=== PATIENT | female | born 1970 | race Caucasian/White ===

== ENCOUNTER 2023-03-26 09:27 | Emergency (ER) | payer OTHER, SELFPAY ==
--- NOTE | ~2023-03-26 | XR_ITS ---
EXAMINATION: XR CHEST CLINICAL INFORMATION: Dizziness. COMPARISON: None available. TECHNIQUE: Frontal view of the chest was obtained. FINDINGS: No significant abnormality is noted involving the heart, lungs, mediastinum, bony thorax or soft tissues. XR/XR chest 1V IMPRESSION: No acute cardiopulmonary process.
--- NOTE | ~2023-03-26 | CT_ITS ---
EXAMINATION: CT HEAD WITHOUT CONTRAST CLINICAL INFORMATION: Dizziness, right upper extremity numbness, slurred speech. COMPARISON: None available. TECHNIQUE: Contiguous axial imaging was performed from the skull base to vertex without intravenous administration of contrast. Coronal and sagittal reformatted images were obtained. This CT examination was performed using dose optimization techniques as appropriate, variously including the following: *Automated exposure control *Adjustment of mA and/or kV according to patient size (this includes techniques or standardized protocols for targeted exams where dose is matched to indication/reason for exam; i.e. extremities or head) *Use of iterative reconstruction technique DLP: 613 mGy-cm FINDINGS: The cortical sulci are normal. The lateral ventricles are symmetrical. The third and fourth ventricles are in their normal midline position. The basilar and prepontine cisterns are unremarkable. There is no acute intra or extracerebral abnormality. There is no mass effect or midline shift. Sections through the bony calvarium are unremarkable. The paranasal sinuses are clear. The bony orbits and orbital contents are unremarkable. CT/CT head/brain wo IV con IMPRESSION: No acute intracranial pathology.
--- NOTE | ~2023-03-26 | MR_ITS ---
MRI OF THE BRAIN WITHOUT IV CONTRAST INDICATION: Right upper extremity numbness. COMPARISON: Head CT 03/26/2023. TECHNIQUE: Multiplanar multisequence MR imaging of the brain was obtained without IV contrast. FINDINGS: There is no hydrocephalus, extra-axial surface collection, or herniation. 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 The major flow voids at the skull base are preserved. There is no acute infarct on diffusion-weighted imaging. There is no intracranial hemorrhage on the gradient recalled echo acquisition. The midline structures are normal. The cerebellar tonsils are normally positioned. The cerebellum and brainstem are normal. The craniocervical junction is normal. Osseous marrow signal intensity is homogenous. The visualized soft tissues are unremarkable. MR/MR head/brain wo con IMPRESSION: - No acute intracranial findings. 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
[2023-03-26 09:39] VITALS: BP 171/94; PULSE 73; RESP 18; TEMP 36.8; O2SAT 95; BMI 36.2
--- NOTE | 2023-03-26 09:47 | PC.NURSE ---
Mally, radiologic technology program director aware of pt.'s symptoms
[2023-03-26 10:26] VITALS: BP 156/80; PULSE 78; RESP 20; O2SAT 93
[2023-03-26 10:38] VITALS: BP 132/82; PULSE 71; RESP 18; O2SAT 96
--- NOTE | 2023-03-26 10:41 | PC.NURSE ---
Addendum entered by Alison Alanis 03/26/23 11:41: iv established. Addendum entered by Alison Alanis 03/26/23 10:47: pt denies vision changes. Original Note: pt axox4, vss, respirations even and unlabored, sats 96% RA, nsr on monitor 71 bpm, skin wpd, neuros intact. pt reports feeling off x 3 wks; numbness/tingling/aching in R. arm; dizziness; intermittent POSADA. pt reports hx migraines and previous stroke 18 years ago. pt able to speak full clear sentences; no slurring noted; responding appropriately to commands. md to bedside; awaiting further orders. call calix within reach.
--- OUTSIDE RECORDS SUMMARY | 2023-03-26 11:02 | XMS_ITS | Continuity of Care Document ---
Author Name Unknown Organization [facility] Adult Address [address] [place] [address]- Care Team Providers Care Corrosion Control Engineer Name Role Phone Domitila DOMINGUEZ, Cassandra Primary Care Physician Encounter [facility] Date(s): 01/30/23 - 03/01/23 [facility] Adult [address] [place] [address]- Allergies, Adverse Reactions, Alerts Substance Reaction Severity Status propranolol CHEST TIGHTNESS Active amLODIPine EDEMA Active Immunizations Given and Recorded Vaccine Date Status Refusal Reason influenza virus vaccine, inactivated 08/30/21 Douglas rded influenza virus vaccine, inactivated 1 06/24/20 Gi suha influenza virus vaccine, inactivated 2 08/31/19 Gi suha influenza virus vaccine, inactivated 3 09/11/18 Gi suha influenza virus vaccine, inactivated 05/19/17 Douglas rded influenza virus vaccine, inactivated 05/01/17 Douglas rded influenza virus vaccine, inactivated 09/19/16 Give n influenza virus vaccine, inactivated 06/18/15 Douglas rded influenza virus vaccine, inactivated 05/07/14 Gi suha influenza virus vaccine, inactivated 06/24/13 Give n influenza virus vaccine, inactivated 07/01/08 Give n SARS-CoV-2 (COVID-19) mRNA BNT-162b2 vac 08/30/21 Recorded SARS-CoV-2 (COVID-19) mRNA BNT-162b2 vac 12/30/20 Given SARS-CoV-2 (COVID-19) mRNA BNT-162b2 vac 12/09/20 Given tetanus/diphtheria/pertussis, acel(Tdap) 5 06/24/20 Given tetanus/diphtheria/pertussis, acel(Tdap) 06/24/13 Given tetanus-diphtheria toxoids (Td) 11/27/07 Given 1Result Comment: [facility] 43494-193-67 2Result Comment: [facility] [id number] 3Result Comment: [09/11/2018] 01562-607-10 4Admin Note: [facility] 5Result Comment: [facility] 85657-697-36 TDAP GIVEN 1 INCH BELOW FLU VACCINE Medications albuterol CFC free 90 mcg/inh inhalation aerosol 2, puffs, Inhalation, 4 times a day, PRN, # 18 Gm, Refills 2, Tot. Refills 2, Maintenance, 02/14/2310:32:00 EDT, Aerosol, Route to Pharmacy Electronically, [id number], [facility], 153, cm, 01/22/23 15:39:00 EDT... Start Date: 02/14/23 Status: Ordered Excedrin 2 tablet, By Mouth, Every 6 hours, 0 Refills, Maintenance, 10/24/15 9:46:21 Start Date: 10/24/15 Status: Ordered Flonase Daily, 0 Refills, Maintenance, 10/29/22 11:16:00 EDT, Partial fill upon patient request if the prescription is for a schedule II opioid drug. Start Date: 10/29/22 Status: Ordered Flovent HFA 44 mcg/inh inhalation aerosol 2 puffs, Inhalation, 2 times a day, Use with spacer. Rinse and spit after use, # 12 Gm, 2 Refills, Maintenance, 02/14/23 10:33:00 EDT, Aerosol, [facility], Partial fill upon patientrequest if the prescription is for a schedule II opioid... Start Date: 02/14/23 Status: Ordered losartan 50 mg oral tablet 50 mg, 1, tablet, By Mouth, Daily, # 90 tablet, Refills 0, Tot. Refills 0, Maintenance, 02/01/23 8:20:00 EDT, Route to Pharmacy Electronically, [facility], Partial fill upon patientrequest if the prescription is for a schedule II opioid... Start Date: 02/01/23 Status: Ordered Relpax 40 mg oral tablet 1 tablet = 40 mg, By Mouth, Daily, PRN for migraine headache, may repeat dose once in 2 hours, max 2tabs/24hrs, # 18 tablet, 2 Refills, Maintenance, 07/11/22 15:08:00 EST, Tablet, [facility], 153, cm, 07/11/22 14:35:00 EST, Height Start Date: 07/11/22 Status: Ordered Sudafed 12-Hour = 120 mg, By Mouth, Every 12 hours, 0 Refills, Maintenance, 07/04/21 17:29:00 EST, Partial fill upon patient request if the prescription is for a schedule II opioid drug. Start Date: 07/04/21 Status: Ordered Xyzal By Mouth, Daily before dinner, 0 Refills, Maintenance, 10/29/22 11:16:00 EDT, Partial fill upon patient request if the prescription is for a schedule II opioid drug. Start Date: 10/29/22 Status: Ordered Problem List Condition Confirmation Course Effective Dates Status Health Status Informant Elevated BP without diagnosis of hypertension Confirmed Active Hypercholesterolemia Confirmed Active Migraine Confirmed 1984 Active Multiple thyroid nodules Confirmed 2010 Active Obesity Confirmed Active Obstructive sleep apnea syndrome 1 Confirmed 2010 Active Seasonal depression Confirmed Active Severe obesity (BMI 35.0-39.9) with comorbidity Confirmed Active 1mild Social History Social History Type Response Smoking Status Never smoker entered on: 10/24/15 Sex Patient Care team information Care Team Personnel Name: Cassandra Ramesh MD Position: [facility] Physician - Primary Care Member Role: PCP Address: Address: [address] [place] [address]- Name: Clark DOMINGUEZ, Jose Grayson Position: [facility] Cardiology MD Member Role: Lifetime Consulting Physician Address: Address: [address] [place] [address] [place] [address]- Care Team Related Persons Name: PATT MIRAMONTES Address: home [address] [place] [address] Name: LEXY COBB Address: [place] [address] Name: EL MORAN Address: home [address] [place] [address]
--- OUTSIDE RECORDS SUMMARY | 2023-03-26 11:02 | XMS_ITS | Continuity of Care Document ---
Author Name Unknown Organization [facility] Adult Address [address] [place] [address]- Care Team Providers Care Liner Reroll Tender Name Role Phone Domitila DOMINGUEZ, Cassandra Primary Care Physician Encounter [facility] Date(s): 02/06/23 - 03/08/23 [facility] Adult [address] [place] [address]- Allergies, Adverse Reactions, Alerts Substance Reaction Severity [...] 06/18/15 Douglas rded influenza virus vaccine, inactivated 4 05/07/14 Gi suha influenza virus vaccine, inactivated 06/24/13 Give n influenza virus vaccine, inactivated 07/01/08 Give n SARS-CoV-2 (COVID-19) mRNA BNT-162b2 vac 08/30/21 Recorded SARS-CoV-2 (COVID-19) mRNA BNT-162b2 vac 12/30/20 Given SARS-CoV-2 (COVID-19) mRNA BNT-162b2 vac 12/09/20 Given tetanus/diphtheria/pertussis, acel(Tdap) 5 06/24/20 Given tetanus/diphtheria/pertussis, acel(Tdap) 06/24/13 Given tetanus-diphtheria toxoids (Td) 11/27/07 Given 1Result Comment: [facility] 83474-916-81 2Result Comment: [facility] [id number] 3Result Comment: [09/11/2018] 48725-793-67 4Admin Note: [facility] 5Result Comment: [facility] 36813-684-69 TDAP GIVEN 1 INCH BELOW FLU VACCINE Medications albuterol CFC free 90 mcg/inh inhalation aerosol 2, puffs, Inhalation, 4 times a day, PRN, # 18 Gm, Refills 2, Tot. Refills 2, Maintenance, 02/14/2310:32:00 EDT, Aerosol, Route to Pharmacy Electronically, [id number], [facility], 153, cm, 01/22/23 [...] Team Personnel Name: Cassandra Ramesh MD Position: [facility] Physician - Primary Care Member Role: PCP Address: Address: [address] [place] [address]- Name: Clark DOMINGUEZ, Jose Grayson Position: [facility] Cardiology MD Member Role: Lifetime Consulting Physician Address: Address: [address] [place] [address] [place] [address]- Care Team Related Persons Name: PATT MIRAMONTES Address: [address] [place] [address] Name: LEXY COBB Address: [place] [address] Name: EL MORAN Address: home [address] [place] [address]
--- OUTSIDE RECORDS SUMMARY | 2023-03-26 11:02 | XMS_ITS | Continuity of Care Document ---
Author Name Unknown Organization [facility] Adult Address [address] [place] [address]- Care Team Providers Care Brand Recorder Name Role Phone Domitila DOMINGUEZ, Cassandra Primary Care Physician Encounter [facility] [place] Date(s): 07/04/21 - 07/11/21 [facility] Adult [address] [place] [address]- Encounter Diagnosis Migraine(Discharge Diagnosis) - 07/04/21 Attending Physician: Cassandra Ramesh MD Allergies, Adverse Reactions, Alerts Substance Reaction Severity Status propranolol CHEST TIGHTNESS Active Immunizations Given and Recorded Vaccine Date Status Refusal Reason SARS-CoV-2 (COVID-19) mRNA BNT-162b2 vac 12/30/20 Given SARS-CoV-2 (COVID-19) mRNA BNT-162b2 vac 12/09/20 Given tetanus/diphtheria/pertussis, acel(Tdap) 1 06/24/20 Given tetanus/diphtheria/pertussis, acel(Tdap) 06/24/13 Given influenza virus vaccine, inactivated 2 06/24/20 Gi suha influenza virus vaccine, inactivated 3 08/31/19 Gi suha influenza virus vaccine, inactivated 4 09/11/18 Gi suha influenza virus vaccine, inactivated 05/19/17 Douglas rded influenza virus vaccine, inactivated 09/19/16 Give n influenza virus vaccine, inactivated 5 05/07/14 Gi suha influenza virus vaccine, inactivated 06/24/13 Give n influenza virus vaccine, inactivated 07/01/08 Give n tetanus-diphtheria toxoids (Td) 11/27/07 Given 1Result Comment: [facility] 58023-728-48 TDAP GIVEN 1 INCH BELOW FLU VACCINE 2Result Comment: [facility] [id number] 3Result Comment: [facility] [id number] 4Result Comment: [09/11/2018] 54140-823-86 5Admin Note: [facility] Medicine Medications Claritin-D By Mouth, Every 12 hours, 0 Refills, Maintenance, 07/04/21 17:29:00 EST, Partial fill upon patient request if the prescription is for a schedule II opioid drug. Start Date: 07/04/21 Status: Ordered Excedrin 2 tablet, By Mouth, Every 6 hours, 0 Refills, Maintenance, 10/24/15 9:46:21 Start Date: 10/24/15 Status: Ordered Lo Loestrin Fe oral tablet 1 tablet, By Mouth, Daily, # 84 tablet, 0 Refills, Maintenance, 06/24/20 10:42:00 EST, Tablet Start Date: 06/24/20 Status: Ordered Relpax 40 mg oral tablet 1 tablet = 40 mg, By Mouth, Daily, PRN for migraine headache, may repeat dose once in 2 hours, max 2tabs/24hrs, # 18 tablet, 2 Refills, Maintenance, 11/11/20 13:54:00 EDT, Tablet, [facility], 153, cm, 09/26/20 13:02:00 EST, Height Start Date: 11/11/20 Status: Ordered Sudafed 12-Hour = 120 mg, By Mouth, Every 12 hours, 0 Refills, Maintenance, 07/04/21 17:29:00 EST, Partial fill upon patient request if the prescription is for a schedule II opioid drug. Start Date: 07/04/21 Status: Ordered Problem List Condition Effective Dates Status Health Status Inform ant Hypercholesterolemia(Confirmed) Active Migraine(Confirmed) 1984 Active Multiple thyroid nodules(Confirmed) 2010 Active Obesity(Confirmed) Active Obstructive sleep apnea syndrome(Confirmed) 2010 Active Seasonal depression(Confirmed) Active 1mild Diagnosis Diagnosis Type Effective Dates Health Status Clini elizabeth Service Informant Migraine Discharge Diagnosis 07/04/21 Vital Signs Most recent to oldest [Reference Range]: 1 Height 153 cm (07/04/21 4:30 PM) Social History Social History Type Response Smoking Status Never smoker entered on: 10/24/15 Sex
--- OUTSIDE RECORDS SUMMARY | 2023-03-26 11:02 | XMS_ITS | Continuity of Care Document ---
Author Name Unknown Organization [facility] Adult Address [address] [place] [address]- Care Team Providers Care Valet Name Role Phone Domitila DOMINGUEZ, [place] Primary Care Physician Encounter [facility] Date(s): 02/12/23 - 02/19/23 [facility] Adult [address] [place] [address]- Encounter Diagnosis Chronic cough(Discharge Diagnosis) - 02/14/23 Attending Physician: Not on Staff, Attending MD Allergies, Adverse Reactions, Alerts Substance Reaction [...] tetanus-diphtheria toxoids (Td) 11/27/07 Given 1Result Comment: [facility] 83175-786-60 2Result Comment: [facility] [id number] 3Result Comment: [09/11/2018] [id number] 4Admin Note: [facility] 5Result Comment: [facility] 39374-778-43 TDAP GIVEN 1 INCH BELOW FLU VACCINE Medications albuterol CFC free 90 mcg/inh inhalation aerosol 2, puffs, Inhalation, 4 times a day, PRN, # 18 Gm, Refills 2, Tot. Refills 2, Maintenance, 02/14/2310:32:00 EDT, Aerosol, Route to Pharmacy Electronically, [id number], [facility], 153, cm, 01/22/23 [...] (BMI 35.0-39.9) with comorbidity Confirmed Active 1mild Diagnosis Diagnosis Type Effective Dates Health Status Cl inical Service Informant Chronic cough Discharge Diagnosis 02/14/23 Non-Specified Vital Signs Most recent to oldest [Reference Range]: 1 2 Pulse Rate [55-90 bpm] 83 bpm (02/12/23 2:51 PM) Blood Pressure [90-138/55-84 mm Hg] 143/ 83mm Hg *H* (02/12/23 3:03 PM) 149/84mm Hg *H* (02/12/23 2:51 PM) Blood pressure sites Arm, left (02/12/23 3:03 PM) Arm, left (02/12/23 2:51 PM) Social History Social History Type Response Smoking Status Never smoker entered on: 10/24/15 Sex Patient Care team information Care Team Personnel Name: Cassandra Ramesh MD Position: S Physician - Primary Care Member Role: PCP Address: Address: [address] [facility] [address] [place] [address]- [place] Name: Clark DOMINGUEZ, Jose Grayson Position: [facility] Cardiology MD Member Role: Lifetime Consulting Physician Address: Address: [address] [place] [address] [place] [address]- Care Team Related Persons Name: PATT MIRAMONTES Address: home [address] [place] [address] Name: LEXY COBB Address: [place] [address] Name: EL MORAN Address: home [address] [place] [address]
--- OUTSIDE RECORDS SUMMARY | 2023-03-26 11:02 | XMS_ITS | Continuity of Care Document ---
Author Name Unknown Organization [facility] Adult Address [address] [place] [address]- Care Team Providers Care Boss Miner Name Role Phone Domitila DOMINGUEZ, Cassandra Primary Care Physician Encounter [facility] Date(s): 04/06/22 - 05/06/22 [facility] Adult [address] [place] [address]- Attending Physician: Admtr, Ar8 Allergies, Adverse Reactions, Alerts Substance Reaction Severity [...] tetanus-diphtheria toxoids (Td) 11/27/07 Given 1Result Comment: [facility] 27046-356-78 TDAP GIVEN 1 INCH BELOW FLU VACCINE 2Result Comment: [facility] 56720-963-46 3Result Comment: [facility] [id number] 4Result Comment: [09/11/2018] 13260-349-91 5Admin Note: [facility] Medicine Medications Claritin-D By Mouth, Every [...] 2tabs/24hrs, # 18 tablet, 2 Refills, Maintenance, 12/08/21 10:00:00 EDT, Tablet, [facility], 153, cm, 07/04/21 16:30:00 EST, Height Start Date: 12/08/21 Status: Ordered Sudafed 12-Hour = 120 mg, [...] syndrome(Confirmed) 2010 Active Seasonal depression(Confirmed) Active 1mild Social History Social History Type Response Smoking Status Never smoker entered on: 10/24/15 Sex Care Team Personnel Name: Domitila DOMINGUEZ, Cassandra Address: [address] [address] [[email or web address]]
--- OUTSIDE RECORDS SUMMARY | 2023-03-26 11:02 | XMS_ITS | Continuity of Care Document ---
Author Name Unknown Organization [facility] Adult Address [address] [place] [address]- Care Team Providers Care Personnel Analyst Name Role Phone Domitila DOMINGUEZ, Cassandra Primary Care Physician Encounter [facility] Date(s): 07/11/22 - 07/18/22 [facility] Adult [address] [place] [address]- Encounter Diagnosis Sinus infection(Discharge Diagnosis) - 07/11/22 Migraine(Discharge Diagnosis) - 07/11/22 Attending Physician: Cassandra Ramesh MD Allergies, Adverse [...] toxoids (Td) 11/27/07 Given 1Result Comment: [facility] 31134-812-98 2Result Comment: [facility] [id number] 3Result Comment: [09/11/2018] 75783-824-92 4Admin Note: [facility] 5Result Comment: [facility] [id number] TDAP GIVEN 1 INCH BELOW FLU VACCINE Medications Excedrin 2 tablet, By Mouth, Every 6 hours, 0 Refills, Maintenance, 10/24/15 9:46:21 Start Date: 10/24/15 Status: Ordered Relpax 40 mg oral tablet [...] Date: 07/04/21 Status: Ordered Problem List Condition Confirmation Course Effective Dates Status Health Status Informant Hypercholesterolemia Confirmed Active Migraine Confirmed 1984 Active Multiple thyroid nodules Confirmed 2010 Active Obese class I Confirmed Active Obesity Confirmed Active Obstructive sleep apnea syndrome 1 Confirmed 2010 Active Seasonal depression Confirmed Active 1mild Diagnosis Diagnosis Type Effective Dates Health Status Cl inical Service Informant Sinus infection Discharge Diagnosis 07/11/22 Migraine Discharge Diagnosis 07/11/22 Vital Signs Most recent to oldest [Reference Range]: 1 Height 153 cm (07/11/22 2:35 PM) Weight 80.9 kg (07/11/22 2:35 PM) Oxygen Saturation [94-100 %] 97 % (07/11/22 2:35 PM) Pulse Rate [55-90 bpm] 102 bpm *H* (07/11/22 2:35 PM) Body Mass Index [18.5-24.99 kg/m2] 34.56 kg/m2 *>HHI* (07/11/22 2:35 PM) Blood Pressure [90-138/55-84 mm Hg] 138/ 81mm Hg (07/11/22 2:35 PM) Temperature [96.8-100.4 DegF] 98.3 DegF (07/11/22 2:35 PM) Mode of Delivery (Oxygen) Room air (07/11/22 2:35 PM) Blood pressure sites Arm, left (07/11/22 2:35 PM) Temperature Route Oral (07/11/22 2:35 PM) Weight Obtained Via Standing scale (07/11/22 2:35 PM) Social History Social History Type Response Smoking Status Never smoker entered on: 10/24/15 Sex Note * Stefanie Vazquez: PERFORM, SIGN, VERIFY Event Display: Patient Education/Instruction Authored Date: [id number] [facility] Clinical Summary Name LOUISA MIRAMONTES Age 51 Years 1970 PCP Domitila DOMINGUEZ, Cassandra PCP Visit Date 07/11/2022 14:33:00 Additional Instructions: Scheduled Appointments?? Future Appointments ?No Future Appointments Scheduled Follow-Up Instructions ?? Diagnosis Migraine, unspecified, not intractable, without status migrainosus; Chronic sinusitis, unspecified Medications: Please continue your medications until treatment is completed or stopped by your provider. Discuss any questions related to medications with your provider. New Medications [facility], [address] [place] [id number], [phone] Amoxicillin-Clavulanate (Augmentin 875 mg-125 mg oral tablet) 1 tab(s) Oral every 12 hours for 7 Days. Refills: 0. Next Dose: Medications to Continue with No Changes These medications were not printed or sent to your pharmacy Apap/Asa/Caffeine (Excedrin) 2 tab(s) Oral every 6 hours. Next Dose: Eletriptan (Relpax 40 mg oral tablet) 1 tab(s) Oral Daily as needed for migraine headache. may repeat dose once in 2 hours, max 2tabs/24hrs. Refills: 2. Next Dose: Pseudoephedrine (Sudafed 12-Hour) 120 Milligram Oral every 12 hours. Next Dose: No Longer Take the Following Medications Ethinyl Estradiol / Norethindrone (Lo Loestrin Fe oral tablet) 1 tab(s) Oral Daily. Loratadine-Pseudoephedrine (Claritin-D) Oral every 12 hours. Allergy Info:?? propranolol Medications Given This Visit Future Orders ?MM Digital Mammo Screening? Order Date:07/11/22?- Complete on or after?07/11/22 Vital Signs Height 153 cm Weight 80.9 kg BMI 34.56 kg/m2 Blood Pressure 138 mm Hg/81 mm Hg Temperature 98.3 DegF Pulse Rate 102 bpm Respiratory Rate 02 Sat Mode of Delivery 97 %/Room air You can now view a summary of your hospital visit from the comfort of your home through a free online portal called [employer]. [employer] is a website that allows you to securely view your medical information including discharge summary, medications and follow-up visits. ??You can alsosend a secure electronic message to your doctor???s office to request appointments, renew medications or just ask a question. You can enroll at [email or web address] or register during your next office visit. Disclaimer:?? The information provided is of a general nature and is intended to be used in conjunction with the recommendations and advice of your health care practitioner. ??Every effort has been made to ensure that the information provided is accurate and complete at the time it is provided to you however, as your needs change, or, as new ??information becomes available, different or additional instructions may be required. If you have questions, please consult with your primary care provider or pharmacist, as appropriate. ??This information is not intended to serve as substitution for assessment and evaluation by a qualified health care provider. If you do not have a primary care provider, you may find a [facility] provider by calling [facility] Link at [phone]. For information about the plan of care including goals and instructions for your diagnosis, please see the patient education orders section of this document. Patient Education Materials?? The content of this educational material or handout may have been modified, supplemented, or adapted from its original content and format to support your individualized medical care. Patient Care team information Care Team Personnel Name: Cassandra Ramesh MD Position: [facility] Primary Care Physician Member Role: PCP Address: Address: [address] [place] [address]- Name: Jose Rodas MD Position: [facility] Cardiology MD Member Role: Lifetime Consulting Physician Address: Address: [address] [place] [address] [place] [address]- Care Team Related Persons Name: PATT MIRAMONTES Address: home [address] [place] [address] Name: LEXY COBB Address: [place] [address] Name: EL MORAN Address: home [address] [place] [address]
--- OUTSIDE RECORDS SUMMARY | 2023-03-26 11:02 | XMS_ITS | Continuity of Care Document ---
Author Name Unknown Organization [facility] Adult Address [address] [place] [address]- Care Team Providers Care Reforestation Worker Name Role Phone Domitila DOMINGUEZ, [place] Primary Care Physician Encounter [facility] Date(s): 12/18/22 - 12/25/22 [facility] Adult [address] [place] [address]- Attending Physician: Not on Staff, Attending MD [...] Given 1Result Comment: [facility] 61304-420-24 2Result Comment: [facility] [id number] 3Result Comment: [09/11/2018] 07241-355-67 4Admin Note: [facility] 5Result Comment: [facility] 67826-170-19 TDAP GIVEN 1 INCH BELOW FLU VACCINE Medications Excedrin 2 tablet, By Mouth, Every 6 hours, 0 Refills, Maintenance, 10/24/15 9:46:21 Start Date: 10/24/15 Status: Ordered Flonase Daily, 0 Refills, Maintenance, 10/29/22 11:16:00 EDT, Partial fill upon patient request if the prescription is for a schedule II opioid drug. Start Date: 10/29/22 Status: Ordered lisinopril 20 mg oral tablet 20 mg, 1, tablet, By Mouth, Daily, # 30 tablet, Refills 1, Tot. Refills 1, Maintenance, 11/27/22 15:33:00 EDT, Route to Pharmacy Electronically, [facility], Partial fill upon patient request if the prescription is for a schedule II opioi... Start Date: 11/27/22 Status: Ordered predniSONE 10 mg oral tablet See Instructions, Take 3 tablets by mouth together in the a.m. for 3 days, then take 2 tablets by mouth daily in the a.m. for 3 days, then take 1 tablet by mouth daily in the a.m. for 3 days., # 18 tablet, 0 Refills, Maintenance, 10/29/22 13:02:00 EDT... Start Date: 10/29/22 Stop Date: 11/07/22 Status: Ordered Relpax 40 mg oral tablet [...] (BMI 35.0-39.9) with comorbidity Confirmed Active 1mild Vital Signs Most recent to oldest [Reference Range]: 1 2 Pulse Rate [55-90 bpm] 97 bpm *H* (12/18/22 2:31 PM) Blood Pressure [90-138/55-84 mm Hg] 135/ 86mm Hg (12/18/22 2:36 PM) 150/88mm Hg *H* (12/18/22 2:31 PM) Blood pressure sites Arm, right (12/18/22 2:36 PM) Arm, right (12/18/22 2:31 PM) Social History Social History Type Response Smoking Status Never smoker entered on: 10/24/15 Sex Patient Care team information Care Team Personnel Name: Domitila DOMINGUEZ, Cassandra Position: [facility] Primary Care Physician Member Role: PCP Address: Address: [address] [place] [address] [address] [place] [address]- Name: Jose Rodas MD Position: [facility] Cardiology MD Member Role: Lifetime Consulting Physician Address: Address: [address] [place] [address]- Care Team Related Persons Name: PATT MIRAMONTES Address: home [address] [place] [address] Name: LEXY COBB Address: [place] [address] Name: EL MORAN Address: [address] [address]
--- OUTSIDE RECORDS SUMMARY | 2023-03-26 11:02 | XMS_ITS | Continuity of Care Document ---
Author Name Unknown Organization [facility] Adult Address [address] [place] [address]- Care Team Providers Care Clinical Specialist Medical Device Name Role Phone Domitila DOMINGUEZ, Cassandra Primary Care Physician Encounter [facility] Date(s): 11/26/22 - 12/26/22 [facility] Adult [address] [place] [address]- Allergies, Adverse Reactions, Alerts Substance Reaction Severity [...] tetanus/diphtheria/pertussis, acel(Tdap) 5 06/24/20 Given tetanus/diphtheria/pertussis, acel(Tdap) 11/6/13 Given tetanus-diphtheria toxoids (Td) 11/27/07 Given 1Result Comment: [facility] 40150-586-10 2Result Comment: [facility] [id number] 3Result Comment: [09/11/2018] 84157-213-11 4Admin Note: [facility] 5Result Comment: [facility] 12847-308-56 TDAP GIVEN 1 INCH BELOW FLU VACCINE [...] EDT, Route to Pharmacy Electronically, [facility], Partial fill upon patient request [...] Maintenance, 07/11/22 15:08:00 EST, Tablet, [facility], 153, cm, 07/11/22 14:35:00 EST, [...] Team Personnel Name: Cassandra Ramesh MD Position: [facility] Primary Care Physician Member Role: PCP Address: Address: [address] [place] [address]- Name: Clark DOMINGUEZ, Jose Grayson Position: [facility] Cardiology MD Member Role: Lifetime Consulting Physician Address: Address: [address] [place] [address] [place] [address]- Care Team Related Persons Name: PATT MIRAMONTES Address: home [address] [place] [address] Name: LEXY COBB Address: [place] [address] Name: EL MORAN Address: [address] [address]
--- OUTSIDE RECORDS SUMMARY | 2023-03-26 11:02 | XMS_ITS | Continuity of Care Document ---
Author Name Unknown Organization [facility] Adult Address [address] [place] [address]- Care Team Providers Care Bean Viner Name Role Phone Domitila DOMINGUEZ, [place] Primary Care Physician [facility]counter [facility] Date(s): 06/29/20 - 07/29/20 [facility] Adult [address] [place] [address]- Allergies, Adverse Reactions, Alerts Substance Reaction Severity Status propranolol CHEST TIGHTNESS Active Immunizations Given and Recorded Vaccine Date Status Refusal Reason tetanus/diphtheria/pertussis, acel(Tdap) 1 06/24/20 Given tetanus/diphtheria/pertussis, acel(Tdap) [...] tetanus-diphtheria toxoids (Td) 11/27/07 Given 1Result Comment: [facility] 26338-543-41 TDAP GIVEN 1 INCH BELOW FLU VACCINE 2Result Comment: [facility] 96654-434-50 3Result Comment: [facility] [id number] 4Result Comment: [09/11/2018] 17918-008-98 5Admin Note: [facility] Medicine Medications Estefany By Mouth, 0 Refills, Maintenance, 06/24/20 10:39:00 EST Start Date: 06/24/20 Status: Ordered Excedrin 2 tablet, By Mouth, Every 6 hours, 0 Refills, Maintenance, 10/24/15 9:46:21 Start Date: 10/24/15 Status: Ordered Lo Loestrin Fe oral tablet 1 tablet, By Mouth, Daily, # 84 tablet, 0 Refills, Maintenance, 06/24/20 10:42:00 EST, Tablet Start Date: 06/24/20 Status: Ordered NuLYTELY with Flavor Packs oral powder for reconstitution 240 mL, By Mouth, Every 10 minutes, # 1 each, 0 Refills, Maintenance, 06/29/20 9:40:00 EST, REC Powder, [facility], test date 09/26/20, 240 mL By Mouth Every 10 minutes, 151.4, cm, 06/24/20 10:16:00 EST, Height Start Date: 06/29/20 Status: Ordered Relpax 40 mg oral tablet 1 tablet = 40 mg, By Mouth, Daily, PRN for migraine headache, may repeat dose once in 2 hours, max 2tabs/24hrs, # 18 tablet, 2 Refills, Maintenance, 08/31/19 14:05:00 EST, Tablet, [facility], 151.5, cm, 08/31/19 13:20:00 EST, He... Start Date: 08/31/19 Status: Ordered Problem List Condition Effective Dates Status Health Status Inform ant Hypercholesterolemia(Confirmed) Active Migraine(Confirmed) 1984 Active Multiple thyroid nodules(Confirmed) 2010 Active Obesity(Confirmed) Active Obstructive sleep apnea syndrome(Confirmed) 2010 Active Seasonal depression(Confirmed) Active 1mild Social History Social History Type Response Smoking Status Never smoker entered on: 10/24/15 Sex
--- OUTSIDE RECORDS SUMMARY | 2023-03-26 11:02 | XMS_ITS | Continuity of Care Document ---
Author Name Unknown Organization [facility] Adult Address [address] [place] [address]- Care Team Providers Care Maintenance Of Way Supervisor Name Role Phone Domitila DOMINGUEZ, Cassandra Primary Care Physician [facility]counter [facility] Date(s): 12/07/21 - 01/06/22 [facility] Adult [address] [place] [address]- Allergies, Adverse Reactions, Alerts Substance Reaction Severity [...] tetanus-diphtheria toxoids (Td) 11/27/07 Given 1Result Comment: [facility] 75940-171-41 TDAP GIVEN 1 INCH BELOW FLU VACCINE 2Result Comment: [facility] 90007-157-59 3Result Comment: [facility] [id number] 4Result Comment: [09/11/2018] 64755-255-26 5Admin Note: [facility] Medications Claritin-D By Mouth, Every 12 hours, [...]
--- OUTSIDE RECORDS SUMMARY | 2023-03-26 11:02 | XMS_ITS | Continuity of Care Document ---
Author Name Unknown Organization [facility] Address [address] [place] [address]- Care Team Providers Care Investigation Specialist Name Role Phone Domitila DOMINGUEZ, [place] Primary Care Physician [facility]counter [facility] Date(s): 09/20/20 - 10/20/20 [facility] [address] [place] [address] Allergies, Adverse Reactions, Alerts Substance Reaction Severity [...] tetanus-diphtheria toxoids (Td) 11/27/07 Given 1Result Comment: [facility] 86983-531-14 TDAP GIVEN 1 INCH BELOW FLU VACCINE 2Result Comment: [facility] 16715-299-60 3Result Comment: [facility] [id number] 4Result Comment: [09/11/2018] [id number] 5Admin Note: [facility] Medications Estefany By Mouth, 0 Refills, [...] 2 Refills, Maintenance, 08/31/19 14:05:00 EST, Tablet, [facility], 151.5, cm, 08/31/19 13:20:00 EST, [...]
--- OUTSIDE RECORDS SUMMARY | 2023-03-26 11:02 | XMS_ITS | Continuity of Care Document ---
Author Name Unknown Organization [facility] Adult Address [address] [place] [address]- Care Team Providers Care Sfdc Consultant Name Role Phone Domitila DOMINGUEZ, Cassandra Primary Care Physician Encounter [facility] Date(s): 02/12/23 - 03/14/23 [facility] Adult [address] [place] [address]- Attending Physician: Admtr, Ar8 Allergies, Adverse Reactions, [...] tetanus-diphtheria toxoids (Td) 11/27/07 Given 1Result Comment: [facility] 31273-526-87 2Result Comment: [facility] [id number] 3Result Comment: [09/11/2018] 42883-879-01 4Admin Note: [facility] 5Result Comment: [facility] 53331-421-69 TDAP GIVEN 1 INCH BELOW FLU VACCINE Medications albuterol CFC free 90 mcg/inh inhalation aerosol 2, puffs, Inhalation, 4 times a day, PRN, # 18 Gm, Refills 2, Tot. Refills 2, Maintenance, 02/14/2310:32:00 EDT, Aerosol, Route to Pharmacy Electronically, [id number], [facility], 153, cm, 01/22/23 15:39:00 EDT... Start Date: 02/14/23 Status: Ordered Breo Ellipta 200 mcg-25 mcg/inh inhalation powder 1 puffs, Inhalation, Daily, # 1 each, 6 Refills, Maintenance, 03/13/23 9:20:00 EDT, Powder, [facility], Partial fill upon patient request if the prescription is for a schedule II opioid drug., 1 puffs Inhalation Daily,x30 days, 153, cm,... Start Date: 03/13/23 Stop Date: 10/09/23 Status: Ordered Excedrin 2 tablet, By Mouth, [...] II opioid... Start Date: 02/01/23 Status: Ordered omeprazole 40 mg oral enteric coated capsule 1 capsule = 40 mg, By Mouth, 2 times a day, take first, then when complete, start once daily treatment, # 28 capsule, 0 Refills, Maintenance, 03/13/23 9:21:00 EDT, EC Capsule, [facility], Partial fill upon patient request if the prescrip... Start Date: 03/13/23 Stop Date: 03/27/23 Status: Ordered omeprazole 40 mg oral enteric coated capsule 1 capsule = 40 mg, By Mouth, Daily, start after twice a day prescription is completed, # 30 capsule, 6 Refills, Maintenance, 03/13/23 9:21:00 EDT, EC Capsule, [facility], Partial fill upon patient request if the prescription is for a laurel... Start Date: 03/13/23 Stop Date: 10/09/23 Status: Ordered Relpax 40 mg oral tablet [...] Status Never smoker entered on: 10/24/15 Sex Cardiology * Casie Montemayor: PERFORM Event Display: Cardiovascular Results Scanned Authored Date: Laboratory * Event Display: Non BH Lab Results Authored Date: * Event Display: Non BH Lab Results Authored Date: * Event Display: Non BH Lab Results Authored Date: Cardiology Consult note * Event Display: Consult Note Cardiology Authored Date: * Event Display: Consult Note Cardiology Authored Date: * Event Display: Consult Note Cardiology Authored Date: Patient Care team information Care Team Personnel Name: Domitila DOMINGUEZ, Cassandra Position: [facility] Physician - Primary Care Member Role: PCP Address: Address: [address] [place] [address]- Name: Clark DOMINGUEZ, Jose Grayson Position: [facility] Cardiology MD Member Role: Lifetime Consulting Physician Address: Address: [address] [place] [address] [place] [address]- Care Team Related Persons Name: PATT MIRAMONTES Address: home [address] [place] [address] Name: LEXY COBB Address: [place] [address] Name: EL MORAN Address: home [address] [place] [address]
--- OUTSIDE RECORDS SUMMARY | 2023-03-26 11:02 | XMS_ITS | Continuity of Care Document ---
Author Name Unknown Organization [facility] Adult Address [address] [place] [address]- Care Team Providers Care Policy Checker Name Role Phone Domitila DOMINGUEZ, Cassandra Primary Care Physician [facility] Date(s): 10/29/22 - 11/28/22 [facility] Adult [address] [place] [address]- Allergies, Adverse Reactions, Alerts Substance Reaction Severity [...] toxoids (Td) 11/27/07 Given 1Result Comment: [facility] 44097-421-81 2Result Comment: [facility] [id number] 3Result Comment: [09/11/2018] [id number] 4Admin Note: [facility] 5Result Comment: [facility] 35475-786-39 TDAP GIVEN 1 INCH BELOW FLU VACCINE [...] EDT, Route to Pharmacy Electronically, [facility], Partial fill upon patient request [...] opioid drug. Start Date: 07/04/21 Status: Ordered Tessalon Perles 100 mg oral capsule 1 capsule = 100 mg, By Mouth, 3 times a day, PRN as needed for cough, for 7 days, # 21 capsule, 0 Refills, Acute 12/04/22 16:51:00 EDT, 11/27/22 16:51:00 EDT, Capsule, [facility], Partial fill upon patient request if the prescription is... Start Date: 11/27/22 Stop Date: 12/04/22 Status: Ordered Xyzal By Mouth, Daily before [...] Team Personnel Name: Cassandra Ramesh MD Position: [facility] Primary Care Physician Member Role: PCP Address: Address: [address] [place] [address]- Name: Jose Rodas MD Position: [facility] Cardiology MD Member Role: Lifetime Consulting Physician Address: Address: [address] [place] [address] [place] [address]- Care Team Related Persons Name: PATT MIRAMONTES Address: home [address] [place] [address] Name: LEXY COBB Address: [place] [address] Name: EL MORAN Address: home [address] [place] [address]
--- OUTSIDE RECORDS SUMMARY | 2023-03-26 11:02 | XMS_ITS | Continuity of Care Document ---
Author Name Unknown Organization [facility] Address [address] [place] [address]- Care Team Providers Care Senior Receptionist Name Role Phone Domitila DOMINGUEZ, [place] Primary Care Physician [facility]counter [facility] Date(s): 09/27/20 - 10/27/20 [facility] [address] [place] [id number] Allergies, Adverse Reactions, Alerts Substance Reaction [...] 1Result Comment: [facility] 60906-376-71 TDAP GIVEN 1 INCH BELOW FLU VACCINE 2Result Comment: [facility] 86483-067-03 3Result Comment: [facility] [id number] 4Result Comment: [09/11/2018] 62073-634-08 5Admin Note: [facility] Medications Estefany By Mouth, 0 Refills, [...] 2 Refills, Maintenance, 08/31/19 14:05:00 EST, Tablet, [facility], 151.5, cm, 08/31/19 13:20:00 EST, He... [...]
--- OUTSIDE RECORDS SUMMARY | 2023-03-26 11:02 | XMS_ITS | Continuity of Care Document ---
Author Name Unknown Organization [facility] Adult Address [address] [place] [address]- Care Team Providers Care C D Area Supervisor Name Role Phone Domitila DOMINGUEZ, Cassandra Primary Care Physician Encounter [facility] Date(s): 01/16/23 - 02/15/23 [facility] Adult [address] [place] [address]- Allergies, Adverse Reactions, Alerts Substance Reaction Severity [...] tetanus-diphtheria toxoids (Td) 11/27/07 Given 1Result Comment: [facility] 62252-229-58 2Result Comment: [facility] [id number] 3Result Comment: [09/11/2018] 46534-296-37 4Admin Note: [facility] 5Result Comment: [facility] 64670-405-18 TDAP GIVEN 1 INCH BELOW FLU VACCINE Medications albuterol CFC free 90 mcg/inh inhalation aerosol 2, puffs, Inhalation, 4 times a day, PRN, # 18 Gm, Refills 2, Tot. Refills 2, Maintenance, 02/14/2310:32:00 EDT, Aerosol, Route to Pharmacy Electronically, [id number], [facility], 153, cm, 01/22/23 [...] Team Personnel Name: Cassandra Ramesh MD Position: [facility] Physician - Primary Care Member Role: PCP Address: Address: [address] [place] [address]- Name: Clark DOMINGUEZ, Jose Grayson Position: [facility] Cardiology MD Member Role: Lifetime Consulting Physician Address: Address: [address] [place] [address] [place] [address]- Care Team Related Persons Name: PATT MIRAMONTES Address: home [address] [place] [address] Name: LEXY COBB Address: [place] [address] Name: EL MORAN Address: home [address] [place] [address]
--- OUTSIDE RECORDS SUMMARY | 2023-03-26 11:02 | XMS_ITS | Continuity of Care Document ---
Author Name Unknown Organization [facility] Adult Address [address] [place] [address]- Care Team Providers Care Flake Or Shred Roll Operator Name Role Phone Domitila DOMINGUEZ, Cassandra Primary Care Physician Encounter [facility] Date(s): 12/10/22 - 01/09/23 [facility] Adult [address] [place] [address]- Allergies, Adverse Reactions, Alerts Substance Reaction Severity [...] influenza virus vaccine, inactivated 4 05/07/14 Gi shua influenza virus vaccine, inactivated 06/24/13 Give n influenza virus vaccine, inactivated 07/01/08 Give n SARS-CoV-2 (COVID-19) mRNA BNT-162b2 vac 08/30/21 Recorded SARS-CoV-2 (COVID-19) mRNA BNT-162b2 vac 12/30/20 Given SARS-CoV-2 (COVID-19) mRNA BNT-162b2 vac 12/09/20 Given tetanus/diphtheria/pertussis, acel(Tdap) 5 06/24/20 Given tetanus/diphtheria/pertussis, acel(Tdap) 11/6/13 Given tetanus-diphtheria toxoids (Td) 11/27/07 Given 1Result Comment: [facility] 43285-808-35 2Result Comment: [facility] [id number] 3Result Comment: [09/11/2018] 03833-323-35 4Admin Note: [facility] 5Result Comment: [facility] 20994-561-57 TDAP GIVEN 1 INCH BELOW FLU VACCINE [...] EDT, Route to Pharmacy Electronically, [facility], Partial fill upon patient request [...] Maintenance, 07/11/22 15:08:00 EST, Tablet, [facility], 153, cm, 07/11/22 14:35:00 EST, [...] Team Personnel Name: Cassandra Ramesh MD Position: [facility] Physician - Primary Care Member Role: PCP Address: Address: [address] [place] [address]- Name: Clark DOMINGUEZ, Jose Grayson Position: [facility] Cardiology MD Member Role: Lifetime Consulting Physician Address: Address: [address] [place] [address] [place] [address]- Care Team Related Persons Name: PATT MIRAMONTES Address: home [address] [place] [address] Name: LEXY COBB Address: [place] [address] Name: EL MORAN Address: [address] [address]
--- OUTSIDE RECORDS SUMMARY | 2023-03-26 11:02 | XMS_ITS | Continuity of Care Document ---
Author Name Unknown Organization [facility] Adult Address [address] [place] [address]- Care Team Providers Care Fiscal Agent Name Role Phone Domitila DOMINGUEZ, Cassandra Primary Care Physician [place] [facility] [place](s): 12/10/22 - 01/09/23 [facility] Adult [address] [place] [address]- Attending Physician: Danny SENIOR HEALTH CONSULTANT, Kellen Foreman Allergies, Adverse Reactions, Alerts Substance Reaction Severity [...] 1Result Comment: [facility] 38475-977-25 2Result Comment: [facility] [id number] 3Result Comment: [09/11/2018] 42683-804-58 4Admin Note: [facility] 5Result Comment: [facility] 60331-553-17 TDAP GIVEN 1 INCH BELOW FLU VACCINE [...] Team Personnel Name: Cassandra Ramesh MD Position: [facility] Physician - Primary Care Member Role: PCP Address: Address: [address] [place] [address]- Name: Clark DOMINGUEZ, Jose Grayson Position: [facility] Cardiology MD Member Role: Lifetime Consulting Physician Address: Address: [address] [place] [address] [place] [address]- Care Team Related Persons Name: PATT MIRAMONTES Address: home [address] [place] [address] Name: LEXY COBB Address: [place] [address] Name: EL MORAN Address: home [address] [place] [address]
--- OUTSIDE RECORDS SUMMARY | 2023-03-26 11:02 | XMS_ITS | Continuity of Care Document ---
Author Name Unknown Organization [facility] Address [address] [place] [address]- Care Team Providers Care Data Architect Manager Name Role Phone Domitila DOMINGUEZ, [place] Primary Care Physician [facility]counter [facility] Date(s): 06/29/20 - 07/29/20 [facility] [address] [place] [address] Allergies, Adverse Reactions, Alerts Substance Reaction Severity [...] tetanus-diphtheria toxoids (Td) 11/27/07 Given 1Result Comment: [facility] 31448-694-07 TDAP GIVEN 1 INCH BELOW FLU VACCINE 2Result Comment: [facility] 55253-627-01 3Result Comment: [facility] [id number] 4Result Comment: [09/11/2018] 43241-796-02 5Admin Note: [facility] Medications Estefany By Mouth, 0 Refills, [...] 2 Refills, Maintenance, 08/31/19 14:05:00 EST, Tablet, [facility], 151.5, cm, 08/31/19 13:20:00 EST, He... [...]
--- OUTSIDE RECORDS SUMMARY | 2023-03-26 11:02 | XMS_ITS | Continuity of Care Document ---
Author Name Unknown Organization [facility] Adult Address [address] [place] [address]- Care Team Providers Care Party Coordinator Name Role Phone Domitila DOMINGUEZ, [place] Primary Care Physician Encounter [facility] Date(s): 11/27/22 - 12/04/22 [facility] Adult [address] [place] [address]- Attending Physician: Not on Staff, Attending MD [...] tetanus-diphtheria toxoids (Td) 11/27/07 Given 1Result Comment: [facility][NOTE 3] 68090-346-24 2Result Comment: [facility][NOTE 3] [id number] 3Result Comment: [09/11/2018] 36120-640-36 4Admin Note: [facility] 5Result Comment: [facility][NOTE 3] 76634-888-19 TDAP GIVEN 1 INCH BELOW FLU VACCINE [...] EDT, Route to Pharmacy Electronically, [facility], Partial fill upon patient request [...] Range]: 1 2 Pulse Rate [55-90 bpm] 95 bpm *H* (11/27/22 2:53 PM) Blood Pressure [90-138/55-84 mm Hg] 155/ 96mm Hg *H* (11/27/22 3:01 PM) 160/105mm Hg *H* (11/27/22 2:53 PM) Blood pressure sites Arm, right (11/27/22 3:01 PM) Arm, right (11/27/22 2:53 PM) Social History Social History Type Response Smoking Status Never smoker entered on: 10/24/15 Sex Patient Care team information Care Team Personnel Name: Cassandra Ramesh MD Position: [facility] Physician - Primary Care Member Role: PCP Address: Address: [address] [place] [address]- Name: Jose Rodas MD Position: [facility] Cardiology MD Member Role: Lifetime Consulting Physician Address: Address: [address] [place] [address] [place] [address]- Care Team Related Persons Name: PATT MIRAMONTES Address: home [address] [place] [address] Name: LEXY COBB Address: [place] [address] Name: EL MORAN Address: home [address] [place] [address]
--- OUTSIDE RECORDS SUMMARY | 2023-03-26 11:02 | XMS_ITS | Continuity of Care Document ---
Author Name Unknown Organization [facility] Adult Address [address] [place] [address]- Care Team Providers Care Mortgage Loan Funder Name Role Phone Domitila DOMINGUEZ, [place] Primary Care Physician [facility] Date[facility]): 07/[facility]/20 - 08/07/20 [facility] Adult [address] [place] [address]- Allergies, Adverse Reactions, Alerts Substance Reaction Severity [...] tetanus-diphtheria toxoids (Td) 11/27/07 Given 1Result Comment: [facility] 66070-031-04 TDAP GIVEN 1 INCH BELOW FLU VACCINE 2Result Comment: [facility] 19175-458-32 3Result Comment: [facility] [id number] 4Result Comment: [09/11/2018] 76687-849-29 5Admin Note: [facility] Medicine Medications Estefany By Mouth, [...] 2 Refills, Maintenance, 08/31/19 14:05:00 EST, Tablet, [facility], 151.5, cm, 08/31/19 13:20:00 EST, [...]
--- OUTSIDE RECORDS SUMMARY | 2023-03-26 11:03 | XMS_ITS | Continuity of Care Document ---
Author Name Unknown Organization [facility] Adult Address [address] [place] [address]- Care Team Providers Care Tag Stringer Name Role Phone Domitila DOMINGUEZ, [place] Primary Care Physician [facility] Date[facility]): 11/11/20 - 12/11/20 [facility] Adult [address] [place] [address]- Allergies, Adverse Reactions, Alerts Substance Reaction Severity Status propranolol CHEST TIGHTNESS Active Immunizations Given and Recorded Vaccine Date Status Refusal Reason SARS-CoV-2 (COVID-19) mRNA BNT-162b2 vac 12/09/20 Given [...] tetanus-diphtheria toxoids (Td) 11/27/07 Given 1Result Comment: [facility] 24862-777-75 TDAP GIVEN 1 INCH BELOW FLU VACCINE 2Result Comment: [facility] 26805-331-16 3Result Comment: [facility] [id number] 4Result Comment: [09/11/2018] 19769-258-63 5Admin Note: [facility] Medicine Medications Estefany By Mouth, 0 Refills, Maintenance, 11/06/20 10:39:00 EST Start Date: 06/24/20 Status: Ordered [...] 2 Refills, Maintenance, 11/11/20 13:54:00 EDT, Tablet, [facility], 153, cm, 09/26/20 13:02:00 EST, Height Start Date: 11/11/20 Status: Ordered Problem List Condition Effective Dates Status Health Status Inform ant Hypercholesterolemia(Confirmed) Active Migraine(Confirmed) 1984 Active Multiple thyroid nodules(Confirmed) 2010 Active Obesity(Confirmed) Active Obstructive sleep apnea syndrome(Confirmed) 2010 Active Seasonal depression(Confirmed) Active 1mild Social History Social History Type Response Smoking Status Never smoker entered on: 10/24/15 Sex
--- OUTSIDE RECORDS SUMMARY | 2023-03-26 11:03 | XMS_ITS | Continuity of Care Document ---
Author Name Unknown Organization [facility] Adult Address [address] [place] [address]- Care Team Providers Care Program Project Analyst Name Role Phone Domitila DOMINGUEZ, Cassandra Primary Care Physician [facility] Date(s): 02/15/23 - 03/17/23 [facility] Adult [address] [place] [address]- Allergies, Adverse Reactions, Alerts Substance Reaction Severity [...] tetanus-diphtheria toxoids (Td) 11/27/07 Given 1Result Comment: [facility] 25990-412-30 2Result Comment: [facility] [id number] 3Result Comment: [09/11/2018] 27327-887-30 4Admin Note: [facility] Medicine 5Result Comment: [facility] 71238-427-56 TDAP GIVEN 1 INCH BELOW FLU VACCINE Medications albuterol CFC free 90 mcg/inh inhalation aerosol 2, puffs, Inhalation, 4 times a day, PRN, # 18 Gm, Refills 2, Tot. Refills 2, Maintenance, 02/14/2310:32:00 EDT, Aerosol, Route to Pharmacy Electronically, [id number], [facility], 153, cm, 01/22/23 [...] 03/13/23 9:21:00 EDT, EC Capsule, [facility], Partial fill upon patient request [...] Ramesh MD Position: [facility] Physician - Primary Care Member Role: PCP Address: Address: [address] [place] [address]- Name: Clark DOMINGUEZ, Jose Grayson Position: [facility] Cardiology MD Member Role: Lifetime Consulting Physician Address: Address: [address] [place] [address] [place] [address]- Care Team Related Persons Name: PATT MIRAMONTES Address: home [address] [place] [address] Name: LEXY COBB Address: [place] [address] Name: EL MORAN Address: home [address] [place] [address]
--- OUTSIDE RECORDS SUMMARY | 2023-03-26 11:03 | XMS_ITS | Continuity of Care Document ---
Author Name Unknown Organization [facility] ter Address [address] [place] [address]- Care Team Providers Care Production Supervisor Trainee Name Role Phone Domitila DOMINGUEZ, Cassandra Primary Care Physician [facility] Date[facility]s): 09/26/20 - 09/26/[address] [address]- Discharge Disposition: A-D/C Home Attending Physician: Lady Rivera MD Admitting Physician: Lady Rivera MD Referring Physician: Lady Rivera MD Allergies, Adverse Reactions, Alerts Substance Reaction [...] tetanus-diphtheria toxoids (Td) 11/27/07 Given 1Result Comment: [facility] 48003-673-89 TDAP GIVEN 1 INCH BELOW FLU VACCINE 2Result Comment: [facility] 75744-027-86 3Result Comment: [facility] [id number] 4Result Comment: [09/11/2018] 23221-156-69 5Admin Note: [facility] Medications Estefany By Mouth, 0 Refills, [...] 2 Refills, Maintenance, 08/31/19 14:05:00 EST, Tablet, [facility], 151.5, cm, 08/31/19 13:20:00 EST, He... Start Date: 08/31/19 Status: Ordered Problem List Condition Effective Dates Status Health Status Inform ant Hypercholesterolemia(Confirmed) Active Migraine(Confirmed) 1984 Active Multiple thyroid nodules(Confirmed) 2010 Active Obesity(Confirmed) Active Obstructive sleep apnea syndrome(Confirmed) 2010 Active Seasonal depression(Confirmed) Active 1mild Procedures Procedure Date Related Diagnosis Body Site Status Colonoscopy 09/26/20 Completed Vital Signs Most recent to oldest [Reference Range]: 1 2 3 Height 153 cm (09/26/20 1:02 PM) Weight 73 kg (09/26/20 1:02 PM) Oxygen Saturation [94-100 %] 99 % (09/26/20 2:58 PM) 100 % (09/26/20 2:46 PM) 98 % (09/26/20 1:02 PM) Pulse Rate [55-90 bpm] 95 bpm *H* (09/26/20 1:02 PM) Body Mass Index [18.5-24.99] 31.18 *>HHI* (09/26/20 1:02 PM) Blood Pressure [90-138/55-84 mm Hg] 131/85mm Hg (09/26/20 2:58 PM) 119/74mm Hg (09/26/20 2:46 PM) 142/76mm Hg *H* (09/26/20 1:02 PM) Respiratory Rate [16-30 br/min] 18 br/min (09/26/20 2:58 PM) 16 br/min (09/26/20 2:46 PM) 16 br/min (09/26/20 1:02 PM) Temperature [96.8-100.4 DegF] 97.4 DegF (09/26/20 1:02 PM) Mode of Delivery (Oxygen) Room air (09/26/20 2:58 PM) Room air (09/26/20 2:46 PM) Room air (09/26/20 1:02 PM) Blood pressure sites Arm, left (09/26/20 2:58 PM) Arm, left (09/26/20 2:46 PM) Arm, right (09/26/20 1:02 PM) Temperature Route Axillary (09/26/20 1:02 PM) Social History Social History Type Response Smoking Status Never smoker entered on: 10/24/15 Sex
--- OUTSIDE RECORDS SUMMARY | 2023-03-26 11:03 | XMS_ITS | Continuity of Care Document ---
Author Name Unknown Organization [facility] Address [address] [place] [address]- Care Team Providers Care Solution Advisor Name Role Phone Domitila DOMINGUEZ, [place] Primary Care Physician [facility]): 09/[facility]/20 - 10/20/20 [facility] [address] [place] [address] Allergies, Adverse Reactions, Alerts Substance [...] [facility]NOTE 3] 44221-244-33 TDAP GIVEN 1 INCH BELOW FLU VACCINE 2Result Comment: [facility][NOTE 3] 24682-952-79 3Result Comment: [facility][NOTE 3] [id number] 4Result Comment: [09/11/2018] 44230-463-26 5Admin Note: [facility] Medicine Medications Estefany By Mouth, [...] 2 Refills, Maintenance, 08/31/19 14:05:00 EST, Tablet, [facility], 151.5, cm, 08/31/19 13:20:00 EST, [...]
--- OUTSIDE RECORDS SUMMARY | 2023-03-26 11:03 | XMS_ITS | Continuity of Care Document ---
Author Name Unknown Organization [facility] Adult Address [address] [place] [address]- Care Team Providers Care Mold Yard Supervisor Name Role Phone Domitila DOMINGUEZ, Cassandra Primary Care Physician Encounter [facility] Date(s): 01/06/22 - 05/06/22 [facility] Adult [address] [place] [address]- Attending Physician: Cassandra Ramesh MD Allergies, Adverse [...] tetanus-diphtheria toxoids (Td) 11/27/07 Given 1Result Comment: [facility] 88126-887-56 TDAP GIVEN 1 INCH BELOW FLU VACCINE 2Result Comment: [facility] 16299-750-72 3Result Comment: [facility] [id number] 4Result Comment: [09/11/2018] 45110-441-21 5Admin Note: [facility] Medicine Medications Claritin-D By Mouth, Every [...] on: 10/24/15 Sex Care Team Personnel Name: Cassandra Ramesh MD Address: [address] [address]
--- OUTSIDE RECORDS SUMMARY | 2023-03-26 11:03 | XMS_ITS | Continuity of Care Document ---
Author Name Unknown Organization [facility] Adult Address [address] [place] [address]- Care Team Providers Care Biotechnician Name Role Phone Domitila DOMINGUEZ, Cassandra Primary Care Physician [place] [facility] Date(s): 07/10/22 - 08/09/22 [facility] Adult [address] [place] [address]- Allergies, Adverse Reactions, Alerts Substance Reaction Severity [...] 1Result Comment: [facility] 26872-166-10 2Result Comment: [facility] [id number] 3Result Comment: [09/11/2018] 10951-667-62 4Admin Note: [facility] 5Result Comment: [facility] 49337-442-67 TDAP GIVEN 1 INCH BELOW FLU VACCINE [...] 2010 Active Seasonal depression Confirmed Active 1mild Social History Social History Type Response Smoking Status Never smoker entered on: 10/24/15 Sex Patient Care team information Care Team Personnel Name: Cassandra Ramesh MD Position: [facility] Primary Care Physician Member Role: PCP Address: Address: [address] [place] [address]- [place] Name: Clark DOMINGUEZ, Jose Grayson Position: [facility] Cardiology MD Member Role: Lifetime Consulting Physician Address: Address: [address] [place] [address] [place] [address]- Care Team Related Persons Name: PATT MIRAMONTES Address: home [address] [place] [address] Name: LEXY COBB Address: [place] [address] Name: EL MORAN Address: [address] [address]
--- OUTSIDE RECORDS SUMMARY | 2023-03-26 11:03 | XMS_ITS | Continuity of Care Document ---
Author Name Unknown Organization [facility] Adult Address [address] [place] [address]- Care Team Providers Care Specialty Development Consultant Name Role Phone Domitila DOMINGUEZ, Cassandra Primary Care Physician [facility] Date[facility]s): 04/20/21 - 05/20/21 [facility] Adult [address] [place] [address]- Allergies, Adverse Reactions, Alerts Substance Reaction Severity [...] 11/27/07 Given 1Result Comment: [facility] 71921-443-19 TDAP GIVEN 1 INCH BELOW FLU VACCINE 2Result Comment: [facility] 99151-889-78 3Result Comment: [facility] [id number] 4Result Comment: [09/11/2018] 21874-592-88 5Admin Note: [facility] Medicine Medications Estefany By Mouth, 0 [...] 2 Refills, Maintenance, 11/11/20 13:54:00 EDT, Tablet, [facility], 153, cm, 09/26/20 13:02:00 EST, [...]
--- OUTSIDE RECORDS SUMMARY | 2023-03-26 11:03 | XMS_ITS | Continuity of Care Document ---
Author Name Unknown Organization [facility] Adult Address [address] [place] [address]- Care Team Providers Care Brace Maker Name Role Phone Domitila DOMINGUEZ, Cassandra Primary Care Physician Encounter [facility] Date(s): 10/29/22 - 11/28/22 [facility] Adult [address] [place] [address]- Allergies, Adverse Reactions, Alerts Substance Reaction Severity [...] toxoids (Td) 11/27/07 Given 1Result Comment: [facility] 42150-160-16 2Result Comment: [facility] [id number] 3Result Comment: [09/11/2018] 41650-295-63 4Admin Note: [facility] 5Result Comment: [facility] 34148-733-27 TDAP GIVEN 1 INCH BELOW FLU VACCINE [...] Team Personnel Name: Cassandra Ramesh MD Position: [facility] Primary Care Physician Member Role: PCP Address: Address: [address] [place] [address]- Name: Jose Rodas MD Position: [facility] Cardiology MD Member Role: Lifetime Consulting Physician Address: Address: [address] [place] [address] [place] [address]- Care Team Related Persons Name: PATT MIRAMONTES Address: home [address] [place] [address] Name: LEXY COBB Address: [place] [address] Name: EL MORAN Address: home [address] [place] [address]
--- OUTSIDE RECORDS SUMMARY | 2023-03-26 11:03 | XMS_ITS | Continuity of Care Document ---
Author Name Unknown Organization [facility] Adult Address [address] [place] [address]- Care Team Providers Care Lens Coater Name Role Phone Domitila DOMINGUEZ, Cassandra Primary Care Physician [facility] Date(s): 04/26/21 - 05/26/21 [facility] Adult [address] [place] [address]- Allergies, Adverse Reactions, Alerts Substance Reaction Severity [...] toxoids (Td) 11/27/07 Given 1Result Comment: [facility] 23995-379-96 TDAP GIVEN 1 INCH BELOW FLU VACCINE 2Result Comment: [facility] 58798-910-78 3Result Comment: [facility] [id number] 4Result Comment: [09/11/2018] 60656-920-85 5Admin Note: [facility] Medicine Medications Estefany By Mouth, 0 [...] 2 Refills, Maintenance, 11/11/20 13:54:00 EDT, Tablet, [facility], 153, cm, 09/26/20 13:02:00 EST, Height [...]
--- OUTSIDE RECORDS SUMMARY | 2023-03-26 11:03 | XMS_ITS | Continuity of Care Document ---
Author Name Unknown Organization [facility] Adult Address [address] [place] [address]- Care Team Providers Care Blood Bank Coordinator Name Role Phone Domitila DOMINGUEZ, Cassandra Primary Care Physician [facility] Date(s): 02/14/23 - 03/16/23 [facility] Adult [address] [place] [address]- Allergies, Adverse Reactions, Alerts Substance Reaction Severity [...] tetanus-diphtheria toxoids (Td) 11/27/07 Given 1Result Comment: [facility] 70869-619-32 2Result Comment: [facility] [id number] 3Result Comment: [09/11/2018] 84356-909-44 4Admin Note: [facility] 5Result Comment: [facility] 84476-830-28 TDAP GIVEN 1 INCH BELOW FLU VACCINE Medications albuterol CFC free 90 mcg/inh inhalation aerosol 2, puffs, Inhalation, 4 times a day, PRN, # 18 Gm, Refills 2, Tot. Refills 2, Maintenance, 02/14/2310:32:00 EDT, Aerosol, Route to Pharmacy Electronically, [id number], [facility], 153, cm, 01/22/23 [...] 03/13/23 9:21:00 EDT, EC Capsule, [facility], Partial fill upon patient request [...] Team Personnel Name: Cassandra Ramesh MD Position: [facility] Physician - Primary Care Member Role: PCP Address: Address: [address] [place] [address]- Name: Clark DOMINGUEZ, Jose Grayson Position: [facility] Cardiology MD Member Role: Lifetime Consulting Physician Address: Address: [address] [place] [address] [place] [address]- Care Team Related Persons Name: PATT MIRAMONTES Address: home [address] [place] [address] Name: LEXY COBB Address: [place] [address] Name: EL MORAN Address: home [address] [place] [address]
--- OUTSIDE RECORDS SUMMARY | 2023-03-26 11:03 | XMS_ITS | Continuity of Care Document ---
Author Name Unknown Organization [facility] Adult Address [address] [place] [address]- Care Team Providers Care Administrative Secretary Name Role Phone Domitila DOMINGUEZ, Cassandra Primary Care Physician Encounter [facility] Date(s): 04/12/21 - 08/10/21 [facility] Adult [address] [place] [address]- Attending Physician: Cassandra Ramesh MD Allergies, Adverse [...] tetanus-diphtheria toxoids (Td) 11/27/07 Given 1Result Comment: [facility] 96725-074-91 TDAP GIVEN 1 INCH BELOW FLU VACCINE 2Result Comment: [facility] 72285-424-79 3Result Comment: [facility] [id number] 4Result Comment: [09/11/2018] 55962-748-57 5Admin Note: [facility] Medications Claritin-D By Mouth, Every 12 [...] 2 Refills, Maintenance, 11/11/20 13:54:00 EDT, Tablet, [facility], 153, cm, 09/26/20 13:02:00 EST, [...]
--- OUTSIDE RECORDS SUMMARY | 2023-03-26 11:03 | XMS_ITS | Continuity of Care Document ---
Author Name Unknown Organization [facility] Adult Address [address] [place] [address]- Care Team Providers Care Containers Sales Representative Name Role Phone Domitila DOMINGUEZ, Cassandra Primary Care Physician Encounter [facility] Date(s): 07/11/22 - 08/10/22 [facility] Adult [address] [place] [address]- Attending Physician: Admtr, Ar8 Allergies, Adverse Reactions, [...] tetanus-diphtheria toxoids (Td) 11/27/07 Given 1Result Comment: [facility] 92031-331-95 2Result Comment: [facility] [id number] 3Result Comment: [09/11/2018] [id number] 4Admin Note: [facility] 5Result Comment: [facility] 88098-754-22 TDAP GIVEN 1 INCH BELOW FLU VACCINE [...] smoker entered on: 10/24/15 Sex Note * Event Display: Non BH Lab Results Authored Date: * Event Display: Non [facility] Lab Results Authored Date: * Event Display: Non BH Lab Results Authored Date: * Casie Montemayor: PERFORM Event Display: Cardiovascular Results Scanned Authored Date: Cardiology Consult note * Event Display: Consult Note Cardiology Authored Date: * Event Display: Consult Note Cardiology Authored Date: * Event Display: Consult Note Cardiology Authored Date: Patient Care team information Care Team Personnel Name: Cassandra Ramesh MD Position: [facility] Primary Care Physician Member Role: PCP Address: Address: [address] [facility] [address] [place] [address]- Name: Jose Rodas MD Position: [facility] Cardiology MD Member Role: Lifetime Consulting Physician Address: Address: [address] [place] [address]- Care Team Related Persons Name: PATT MIRAMONTES Address: home [address] [place] [address] Name: LEXY COBB Address: [place] [address] Name: EL MORAN Address: home [address] [place] [address]
--- OUTSIDE RECORDS SUMMARY | 2023-03-26 11:03 | XMS_ITS | Continuity of Care Document ---
Author Name Unknown Organization [facility] Adult Address [address] [place] [address]- Care Team Providers Care Advertising Coordinator Name Role Phone Domitila DOMINGUEZ, Cassandra Primary Care Physician Encounter [facility] Date(s): 01/15/23 - 02/14/23 [facility] Adult [address] [place] [address]- Allergies, Adverse Reactions, Alerts Substance Reaction Severity [...] toxoids (Td) 11/27/07 Given 1Result Comment: [facility] 04680-250-44 2Result Comment: [facility] [id number] 3Result Comment: [09/11/2018] 75487-298-27 4Admin Note: [facility] 5Result Comment: [facility] 95913-227-04 TDAP GIVEN 1 INCH BELOW FLU VACCINE Medications albuterol CFC free 90 mcg/inh inhalation aerosol 2, puffs, Inhalation, 4 times a day, PRN, # 18 Gm, Refills 2, Tot. Refills 2, Maintenance, 02/14/2310:32:00 EDT, Aerosol, Route to Pharmacy Electronically, [id number], [facility], 153, cm, 01/22/23 [...] Team Personnel Name: Cassandra Ramesh MD Position: [facility] Physician - Primary Care Member Role: PCP Address: Address: [address] [place] [address]- Name: Clark DOMINGUEZ, Jose Grayson Position: [facility] Cardiology MD Member Role: Lifetime Consulting Physician Address: Address: [address] [place] [address] [place] [address]- Care Team Related Persons Name: PATT MIRAMONTES Address: home [address] [place] [address] Name: LEXY COBB Address: [place] [address] Name: EL MORAN Address: home [address] [place] [address]
--- OUTSIDE RECORDS SUMMARY | 2023-03-26 11:03 | XMS_ITS | Continuity of Care Document ---
Author Name Unknown Organization [facility] Address [address] [place] [address]- Care Team Providers Care Video Game Tester Name Role Phone Domitila DOMINGUEZ, Cassandra Primary Care Physician Encounter [facility] Date(s): 02/06/23 - 03/08/23 [facility] [address] [place] [address]- Allergies, Adverse Reactions, Alerts Substance Reaction Severity [...] tetanus-diphtheria toxoids (Td) 11/27/07 Given 1Result Comment: [facility] [id number] 2Result Comment: [facility] [id number] 3Result Comment: [09/11/2018] 43216-813-31 4Admin Note: [facility] 5Result Comment: [facility] 58331-442-31 TDAP GIVEN 1 INCH BELOW FLU VACCINE Medications albuterol CFC free 90 mcg/inh inhalation aerosol 2, puffs, Inhalation, 4 times a day, PRN, # 18 Gm, Refills 2, Tot. Refills 2, Maintenance, 02/14/2310:32:00 EDT, Aerosol, Route to Pharmacy Electronically, [id number], [facility], 153, cm, 01/22/23 [...] Team Personnel Name: Cassandra Ramesh MD Position: [facility] Physician - Primary Care Member Role: PCP Address: Address: [address] [place] [id number]- Name: Clark DOMINGUEZ, Jose Grayson Position: [facility] Cardiology MD Member Role: Lifetime Consulting Physician Address: Address: [address] [place] [address] [place] [address]- Care Team Related Persons Name: PATT MIRAMONTES Address: home [address] [place] [address] Name: LEXY COBB Address: [place] [address] Name: EL MORAN Address: home [address] [place] [id number]
--- OUTSIDE RECORDS SUMMARY | 2023-03-26 11:03 | XMS_ITS | Continuity of Care Document ---
Author Name Unknown Organization [facility] Address [address] [place] [address]- Care Team Providers Care Music Assistant Name Role Phone Domitila DOMINGUEZ, Cassandra Primary Care Physician [id number] Date(s): 08/31/19 - 09/07/19 [facility] [address] [place] [address]- [facility] Encounter Diagnosis Migraine(Discharge Diagnosis) - 08/31/19 Attending Physician: Cassandra Ramesh MD Allergies, Adverse Reactions, Alerts Substance Reaction Severity Status NKA Active Immunizations Given and Recorded Vaccine Date Status Refusal Reason influenza virus vaccine, inactivated 1 08/31/19 Gi suha influenza virus vaccine, inactivated 2 09/11/18 Gi suha influenza virus vaccine, inactivated 05/19/17 Douglas rded influenza virus vaccine, inactivated 09/19/16 Give n influenza virus vaccine, inactivated 3 05/07/14 Gi suha influenza virus vaccine, inactivated 06/24/13 Give n influenza virus vaccine, inactivated 07/01/08 Give n tetanus/diphtheria/pertussis, acel(Tdap) 06/24/13 Given tetanus-diphtheria toxoids (Td) 11/27/07 Given 1Result Comment: [facility] [id number] 2Result Comment: [09/11/2018] [id number] 3Admin Note: [facility] Medicine Medications Excedrin 2 tablet, By Mouth, Every 6 hours, 0 Refills, Maintenance, 10/24/15 9:46:21 Start Date: 10/24/15 Status: Ordered propranolol 60 mg oral capsule, extended release 60 mg, 1, capsule, By Mouth, Daily, # 30 capsule, Refills 0, Tot. Refills 0, Maintenance, 08/31/19 13:25:00 EST, Route to Pharmacy Electronically, [facility], 151.5, cm, 08/31/19 13:20:00 EST, Height Start Date: 08/31/19 Status: Ordered Relpax 40 mg oral tablet 1 tablet = 40 mg, By Mouth, Daily, PRN for migraine headache, may repeat dose once in 2 hours, max 2tabs/24hrs, # 18 tablet, 2 Refills, Maintenance, 08/31/19 14:05:00 EST, Tablet, [facility], 151.5, cm, 08/31/19 13:20:00 EST, He... Start Date: 08/31/19 Status: Ordered Problem List Condition Effective Dates Status Health Status Inform ant Hypercholesterolemia(Confirmed) Active Migraine(Confirmed) 1984 Active Multiple thyroid nodules(Confirmed) 2010 Active Obesity(Confirmed) Active Obstructive sleep apnea syndrome(Confirmed) 2010 Active Seasonal depression(Confirmed) Active 1mild Diagnosis Diagnosis Type Effective Dates Health Status Cl[facility] Service Informant Migraine Discharge Diagnosis 08/31/19 Vital Signs Most recent to oldest [Reference Range]: 1 2 Height 151.5 cm (08/31/19 1:20 PM) 151.5 cm (08/31/19 1:01 PM) Weight 77.6 kg (08/31/19 1:01 PM) Oxygen Saturation [94-100 %] 97 % (08/31/19 1:20 PM) Pulse Rate [55-90 bpm] 72 bpm (08/31/19 1:20 PM) Body Mass Index [18.5-24.99] 33.81 *>HHI* (08/31/19 1:01 PM) Blood Pressure [90-138/55-84 mm Hg] 132/ 86mm Hg (08/31/19 1:20 PM) 146/96mm Hg *H* (08/31/19 1:01 PM) Temperature [96.8-100.4 DegF] 98.1 DegF (08/31/19 1:01 PM) Mode of Delivery (Oxygen) Room air (08/31/19 1:20 PM) Blood pressure sites Arm, left (08/31/19 1:01 PM) Temperature Route Oral (08/31/19 1:01 PM) Social History Social History Type Response Smoking Status Never smoker entered on: 10/24/15 Sex
--- OUTSIDE RECORDS SUMMARY | 2023-03-26 11:03 | XMS_ITS | Continuity of Care Document ---
Author Name Unknown Organization [facility] Address [address] [place] [address]- Care Team Providers Care Diamond Saw Operator Name Role Phone Domitila DOMINGUEZ, Cassandra Primary Care Physician Encounter [facility] Date(s): 01/21/23 - 02/20/23 [facility] [address] [place] [address]- Allergies, Adverse Reactions, Alerts Substance Reaction Severity [...] Given 1Result Comment: [facility] [id number] 2Result Comment: [facility] [id number] 3Result Comment: [09/11/2018] [id number] 4Admin Note: [facility] 5Result Comment: [facility] [id number] TDAP GIVEN 1 INCH BELOW FLU VACCINE Medications albuterol CFC free 90 mcg/inh inhalation aerosol 2, puffs, Inhalation, 4 times a day, PRN, # 18 Gm, Refills 2, Tot. Refills 2, Maintenance, 02/14/2310:32:00 EDT, Aerosol, Route to Pharmacy Electronically, [id number], [facility], 153, cm, 01/22/23 [...] Team Personnel Name: Cassandra Ramesh MD Position: [facility] Physician - Primary Care Member Role: PCP Address: Address: [address] [place] [address]- Name: Clark DOMINGUEZ, Jose Grayson Position: [facility] Cardiology MD Member Role: Lifetime Consulting Physician Address: Address: [address] [place] [address] [place] [address]- Care Team Related Persons Name: PATT MIRAMONTES Address: home [address] [place] [address] Name: LEXY COBB Address: [place] [address] Name: EL MORAN Address: home [address] [place] [id number]
--- OUTSIDE RECORDS SUMMARY | 2023-03-26 11:03 | XMS_ITS | Continuity of Care Document ---
Author Name Unknown Organization [facility] Address [address] [place] [address]- Care Team Providers Care Diesel Service Journeyman Name Role Phone Domitila DOMINGUEZ, [place] Primary Care Physician Encounter [facility] Date(s): 08/31/19 - 09/10/19 [facility] [address] [place] [address]- [facility] Attending Physician: Admtr, Ar8 Allergies, Adverse Reactions, [...] toxoids (Td) 11/27/07 Given 1Result Comment: [facility] [id number] 2Result Comment: [09/11/2018] [id number] 3Admin Note: [facility] Medications Excedrin 2 tablet, By Mouth, [...] 2 Refills, Maintenance, 08/31/19 14:05:00 EST, Tablet, [facility], 151.5, cm, 08/31/19 13:20:00 EST, He... [...]
--- NOTE | 2023-03-26 11:04 | ECG_ITS ---
Test Reason : RUE PAIN Blood Pressure : / mmHG Vent. Rate : 068 BPM Atrial Rate : 068 BPM P-R Int : 142 ms QRS Dur : 086 ms QT Int : 416 ms P-R-T Axes : 065 001 034 degrees QTc Int : 442 ms Normal sinus rhythm Normal ECG When compared with ECG of 13-SEP-2019 04:48, Questionable change in QRS axis Referred By: Jennifer Solis Electronically Signed By:Mio Walton
--- NOTE | 2023-03-26 11:06 | ED_ITS ---
HPI - Neuro Symptoms/Deficit General Chief Complaint: Neuro Symptoms/Deficit Stated Complaint: Tingling R Arm Dizziness Time Seen by Provider: 03/26/23 10:41 Source: patient Mode of arrival: ambulatory Limitations: no limitations History of Present Illness HPI Narrative: 52-year-old female came in for evaluation of right upper extremity numbness for few weeks that has been constant for the last couple weeks with no improvement, no weakness. Patient with known history of migraine had a bad migraine yesterday that it self resolved today, patient is been feeling dizzy, patient intermittently have problem expressing and finding the words to express herself. Patient had history of CVA when she was in her 30s due to PFO that was repaired. Related Data Allergies Allergy/AdvReac Type Severity Reaction Status Date / Time No Known Allergies Allergy Unverified 05/05/20 16:25 Review of Systems Review of Systems: All other systems are reviewed and are negative Constitutional: Reports as per HPI and Reports no additional constitutional complaints Eyes: Reports as per HPI and Reports no additional eye complaints Reports system reviewed and no additional complaints, except as documented Cardiovascular: Reports as per HPI and Reports no additional cardiovascular complaints Respiratory: Reports as per HPI and Reports no additional respiratory complaints Gastrointestinal: Reports as per HPI and Reports no additional gastrointestinal complaints Genitourinary: Reports no additional female genitourinary complaints Musculoskeletal: Reports no additional musculoskeletal complaints Skin/Breast: Reports system reviewed and no additional complaints, except as docu Psychiatric: Reports no additional psychiatric complaints Endocrine: Reports no additional endocrine complaints Hematologic/Lymphatic: Reports no additional hematologic/lymphatic complaints Allergic/Immunologic: Reports no additional allergic/immunologic complaints Reports system reviewed and no additional complaints, except as documented and Reports Abnormal speech present [facility] Social History Social History Alcohol intake: never Smoked in Last 30 Days: No Use of substances other than those prescribed or required for medical reasons: No Advance Directives: No Advance Directives Information Provided: Yes Physical Exam Vital Signs: Vital Signs: Last Vital Signs Temp 98.3 F 03/26/23 09:39 Pulse 71 03/26/23 10:38 Resp 18 03/26/23 10:38 BP 132/82 03/26/23 10:38 Pulse Ox 96 03/26/23 10:38 O2 Del Method Room Air 03/26/23 10:38 BMI result Body Mass Index 36.2 Vital signs have been reviewed as appeared to be correct. Blood pressure normal. Heart rate normal. Respiration rate normal. Temperature normal. Oxygen saturation normal. Appearance: Alert. Oriented X3. No acute distress. Head: Normal external exam. Normocephalic. Atraumatic. No Chau signs noted. No raccoon eyes noted Eyes: PERRLA. EOMI. Conjunctiva and sclera normal. Eyelids normal. ENT: TM's Normal. Pharynx normal. Uvula midline. Moist mucous membranes. No t rismus noted. No drooling noted. No muffled voice noted. Neck: Normal inspection. Neck supple. FROM. No adenopathy. Thyroid Normal. No meningeal signs. No neck mass noted. CVS: Normal heart rate and rhythm. Heart sound normal. No murmurs noted. Pulses normal throughout. Respiratory: No respiratory distress. Painless inspiration. Breath sounds normal. No wheezes/rales/rhonchi noted. Chest nontender. No accessory muscle usage noted or decreased air movement noted. Abdomen: Soft and nontender. Bowel sounds normal in all 4 quadrants. No distention noted. No organomegaly noted. No visible injury noted. Back: No CVA tenderness. Full range of motion noted. Skin: Skin warm and dry. Normal skin color. Normal skin turgor. No rashes/lesions/lacerations noted. Extremities: No lower extremity edema. Extremities exhibit normal range of motion. Extremities nontender. Neuro: Oriented X 3. Cranial nerve exam: II-XII are grossly intact No motor deficit. No sensory deficit. Reflexes normal. Course Course Course Narrative: 52-year-old female came in for evaluation of right upper extremity numbness with no weakness or neurological deficit, MRI is showing a chronic old infarction with no acute infarction on the MRI, physical exam is consistent with lower motor neuron lesion likely cervical radiculopathy, no symptoms to indicate central stroke. Patient was reassured and will discharge to follow-up with PCP. Medications Administered Discontinued Medications Generic Name Dose Route Start Last Admin Trade Name Freq PRN Reason Stop Dose Admin Sodium Chloride 1,000 mls @ 999 mls/hr 03/26/23 11:03 03/26/23 12:41 Ns IV 03/26/23 12:03 Infused .Q1H1M ONE Infusion Medical Decision Making Differential Diagnosis Differential Diagnoses: The differential diagnosis associated with the presentation includes (Central CVA, cervical radiculopathy, electrolyte abnormality, intracranial pathology, electrolyte abnormality, severe anemia, anxiety.) Admission/Observation Consideration of admission/observation: Escalation of care including admission/observation considered Lab Data MDM Lab Attestation statement: I reviewed the patient's lab results. 03/26/23 11:07 03/26/23 11:07 Labs: Lab Results 03/26/23 03/26/23 03/26/23 Range/Units 11:07 11:07 11:07 WBC 9.1 (4.8-10.8) X10*3/uL RBC 4.41 (4.20-5.50) X10*6/uL Hgb 13.5 (12.0-16.0) g/dl Hct 38.8 (37.0-47.0) % MCV 88.0 (80.0-98.0) fL MCH 30.6 (27.0-33.0) pg MCHC 34.8 (31.0-35.0) g/dl RDW 12.8 (11.0-16.0) % Plt Count 285 (160-400) X10*3/uL MPV 8.3 L (9.4-12.3) fL Immature Gran % (Auto) 0.4 (0.0-0.4) % Neut % (Auto) 47.9 (45-73) % Lymph % (Auto) 36.9 (20-40) % [place] % (Auto) 7.7 (2-11) % Eos % (Auto) 6.2 H (0-4) % Baso % (Auto) 0.9 (0-2) % Lymph # (Auto) 3.3 (1.2-4.9) X10*3/uL [place] # (Auto) 0.7 (0.1-1.2) X10*3/uL Eos # (Auto) 0.6 H (0.0-0.4) X10*3/uL Baso # (Auto) 0.1 (0.0-0.2) X10*3/uL Abs Immat Gran (auto) 0.04 H (0.00-0.03) X10*3/uL Absolute Neuts (auto) 4.3 (2.0-8.3) x10*3/uL Absolute Nucleated RBC 0.000 (0.0-0.012) X10*3/uL Nucleated RBC % (auto) 0.0 (0.0-0.2) /100WBC Sodium 142 (135-145) mmol/L Potassium 3.7 (3.3-5.1) mmol/L Chloride 109 H (96-108) mmol/L Carbon Dioxide 25 (22-29) mmol/L Anion Gap 12 (12-20) BUN 10 (9-16) mg/dL Creatinine 0.73 (0.5-1.4) mg/dL Estim Creat Clear Calc 85.7 Estimated GFR > 60 Random Glucose 98 (60-115) mg/dL Calcium 9.9 (8.4-10.2) mg/dL Total Bilirubin 0.5 (0.0-1.0) mg/dL Direct Bilirubin 0.2 (0.0-0.5) mg/dL AST 41 H (5-31) U/L ALT 72 H (0-31) U/L Alkaline Phosphatase 56 (39-117) U/L Troponin I High Sens < 2.7 (<3.5-17.0) ng/L B-Natriuretic Peptide (<100) pg/mL Total Protein 7.3 (6.5-8.0) g/dL Albumin 4.3 (3.5-5.0) g/dL Lipase 28 (8-78) U/L Urine Color Urine Appearance Urine pH (5.0-9.0) Ur Specific [place] (1.005-1.025) Urine Protein (Neg-Trace) mg/dL Urine Glucose (UA) (Negative) mg/dL Urine Ketones (Negative) mg/dL Urine Blood (Negative) Urine Nitrite (Negative) Ur Leukocyte Esterase (Negative) 03/26/23 03/26/23 Range/Units 11:07 11:08 WBC (4.8-10.8) X10*3/uL RBC (4.20-5.50) X10*6/uL Hgb (12.0-16.0) g/dl Hct (37.0-47.0) % MCV (80.0-98.0) fL MCH (27.0-33.0) pg MCHC (31.0-35.0) g/dl RDW (11.0-16.0) % Plt Count (160-400) X10*3/uL MPV (9.4-12.3) fL Immature Gran % (Auto) (0.0-0.4) % Neut % (Auto) (45-73) % Lymph % (Auto) (20-40) % [place] % (Auto) (2-11) % Eos % (Auto) (0-4) % Baso % (Auto) (0-2) % Lymph # (Auto) (1.2-4.9) X10*3/uL [place] # (Auto) (0.1-1.2) X10*3/uL Eos # (Auto) (0.0-0.4) X10*3/uL Baso # (Auto) (0.0-0.2) X10*3/uL Abs Immat Gran (auto) (0.00-0.03) X10*3/uL Absolute Neuts (auto) (2.0-8.3) x10*3/uL Absolute Nucleated RBC (0.0-0.012) X10*3/uL Nucleated RBC % (auto) (0.0-0.2) /100WBC Sodium (135-145) mmol/L Potassium (3.3-5.1) mmol/L Chloride (96-108) mmol/L Carbon Dioxide (22-29) mmol/L Anion Gap (12-20) BUN (9-16) mg/dL Creatinine (0.5-1.4) mg/dL Estim Creat Clear Calc Estimated GFR Random Glucose (60-115) mg/dL Calcium (8.4-10.2) mg/dL Total Bilirubin (0.0-1.0) mg/dL Direct Bilirubin (0.0-0.5) mg/dL AST (5-31) U/L ALT (0-31) U/L Alkaline Phosphatase (39-117) U/L Troponin I High Sens (<3.5-17.0) ng/L B-Natriuretic Peptide 10 (<100) pg/mL Total Protein (6.5-8.0) g/dL Albumin (3.5-5.0) g/dL Lipase (8-78) U/L Urine Color Yellow Urine Appearance Clear Urine pH 7.0 (5.0-9.0) Ur Specific [place] <= 1.005 (1.005-1.025) Urine Protein Negative (Neg-Trace) mg/dL Urine Glucose (UA) Negative (Negative) mg/dL Urine Ketones Negative (Negative) mg/dL Urine Blood Negative (Negative) Urine Nitrite Negative (Negative) Ur Leukocyte Esterase Negative (Negative) Independent Interpretation I performed an independent interpretation of an: EKG (Normal sinus rhythm at 68 beats per minute, normal intervals, no ST-T changes.) and CT Scan (Head: No acute intracranial pathology.) Interpretation: Brain MRI: no acute intracranial pathology. Radiology Impression Discussion of test interpretation with radiology: I have reviewed the radiologist's reading. NIH Stroke Scale Internal: Initial- Upon Arrival Time: 11:21 Level of Consciousness: Alert Level of Consciousness Questions: Answers both questions correctly Level of Consciousness Commands: Performs both tasks correctly Best Gaze: Normal Visual: No visual loss Facial Palsy: Normal Motor Arm (Right): No drift Motor Arm (Left): No drift Motor Leg (Right): No drift Motor Leg (Left): No drift Limb Ataxia: Absent Sensory: Normal Best Language: No aphasia Dysarthia: Normal Extinction and Inattention: No abnormality Score: 0 Discharge Plan Discharge Clinical Impression: Cervical radiculopathy Patient Disposition: Home, Self-Care Instructions: Cervical Radiculopathy (ED) Referrals: Mervin Boyle MD [Physician] - Cassandra Duncan MD [Primary Care Provider] -
[2023-03-26 11:13] LABS: MANUAL DIFF FLAG NO
[2023-03-26 11:15] LABS: Basophils Absolute Auto 0.1 X10*3/uL (0.0-0.2); Basophils Percent Auto 0.9 % (0-2); Eosinophils Absolute Auto 0.6 X10*3/uL (0.0-0.4); Eosinophils Percent Auto 6.2 % (0-4); Hematocrit 38.8 % (37.0-47.0); Hemoglobin 13.5 g/dl (12.0-16.0); Imm Gran Abs Auto 0.04 X10*3/uL (0.00-0.03); Imm Gran Pct Auto 0.4 % (0.0-0.4); Lymphocytes Absolute Auto 3.3 X10*3/uL (1.2-4.9); Lymphocytes Percent Auto 36.9 % (20-40); Mean Corpuscular HGB Conc 34.8 g/dl (31.0-35.0); Mean Corpuscular Hemoglobin 30.6 pg (27.0-33.0); Mean Platelet Volume 8.3 fL (9.4-12.3); Monocytes Absolute Auto 0.7 X10*3/uL (0.1-1.2); Monocytes Percent Auto 7.7 % (2-11); Neutrophils Absolute Auto 4.3 x10*3/uL (2.0-8.3); Neutrophils Percent Auto 47.9 % (45-73); Platelet Count 285 X10*3/uL (160-400); Red Blood Count 4.41 X10*6/uL (4.20-5.50); Red Cell Distribution Width 12.8 % (11.0-16.0); White Blood Count 9.1 X10*3/uL (4.8-10.8)
[2023-03-26 11:17] LABS: Appearance Urine Clear; Color Urine Yellow; Glucose Urine UA Negative (Negative); Leukocyte Esterase Urine Negative (Negative); Nitrite Urine Negative (Negative); Specific Gravity - Urine <= 1.005 (1.005-1.025); Urine Blood Negative (Negative); Urine Ketones Negative (Negative); Urine Protein Negative (Neg-Trace)
[2023-03-26 11:31] LABS: Alanine Aminotransferase 72 U/L (0-31); Albumin Level 4.3 g/dL (3.5-5.0); Alkaline Phosphatase 56 U/L (39-117); Anion Gap 12 (12-20); Aspartate Amino Transferase 41 U/L (5-31); Bilirubin Direct 0.2 mg/dL (0.0-0.5); Bilirubin Total 0.5 mg/dL (0.0-1.0); Blood Urea Nitrogen 10 mg/dL (9-16); Calcium 9.9 mg/dL (8.4-10.2); Carbon Dioxide 25 mmol/L (22-29); Chloride 109 mmol/L (96-108); Creatinine Clr Calc Pharmacy 85.7; Estimated Glomerular Filt Rate > 60; Glucose Random 98 mg/dL (60-115); Lipase 28 U/L (8-78); Potassium 3.7 mmol/L (3.3-5.1); Sodium 142 mmol/L (135-145); Total Protein 7.3 g/dL (6.5-8.0)
[2023-03-26] MEDS: 0.9 % Sodium Chloride 1,000 ML 999 ML IV (11:31)
[2023-03-26 11:37] LABS: B Type Natriuretic Peptide 10 pg/mL (<100)
--- NOTE | 2023-03-26 11:40 | PC.NURSE ---
pt return from ct. nsr on monitor 72 bpm; sats 98% RA. MRI checklist sheet done with pt; faxed to mri. ivf infusing. call [facility] within reach.
[2023-03-26 11:46] LABS: Troponin-I High Sensitivity < 2.7 ng/L (<3.5-17.0)
--- NOTE | 2023-03-26 12:41 | PC.NURSE ---
ivf infused. neuros intact; pt reports intermittent feelings of numbness/tingling of R. arm; not worse than upon arrival. awaiting mri. call [facility] within reach.
--- NOTE | 2023-03-26 13:47 | PC.NURSE ---
pt to mri at this time.
[2023-03-26 15:46] VITALS: BP 150/88; PULSE 74; RESP 16; O2SAT 95
== END 2023-03-26 15:49 | disposition home or self-care (01) ==
PROVIDERS: Emergency Provider Emergency Medicine; PCP Internal Medicine
DX: M54.12 Radiculopathy, cervical region (principal); R20.2 Paresthesia of skin; R06.02 Shortness of breath; R51.9 Headache, unspecified; M54.2 Cervicalgia; Z79.899 Other long term (current) drug therapy
CPT/HCPCS: 36415; 70450; 70551; 71045; 80048; 80076; 81003; 83690; 83880; 84484; 85025; 93005; 96360; 99285

== ENCOUNTER → 2023-03-26 11:04 | Outpatient (BNV) | payer OTHER, SELFPAY | PROVIDERS: Emergency Provider Emergency Medicine; PCP Internal Medicine; Visit Provider Internal Medicine Cardiovascular Disease | DX: M25.511 Pain in right shoulder (principal) | CPT/HCPCS: 93010 ==